=== PATIENT | male | born 1955 | race Caucasian/White ===

== ENCOUNTER 2023-09-04 12:51 | Outpatient (REF) | payer MEDICARE, OTHER, SELFPAY ==
[2023-09-04 20:30] LABS: HCT 46.9 % (40.0-50.0); HGB 16.4 g/dL (13.5-17.5); MCH 30.9 pg (27.0-33.0); MCV 89 fL (80-95); MPV 10.5 fL (8.0-11.0); Platelet Count 243 10^3/uL (130-400); RDW 11.9 % (11.8-14.1); RDW-SD 38.1 fL
[2023-09-04 20:55] LABS: ALT 28 U/L (16-63); AST 26 U/L (15-37); Albumin 4.1 g/dL (3.4-5.0); Alkaline Phosphatase 66 U/L (46-116); Anion Gap 9.5 mmol/L (3-11); BUN 18 mg/dL (7-18); Bilirubin, Total 0.4 mg/dL (0.2-1.0); CO2 26.5 mmol/L (21.0-32.0); CREATININE 1.3 mg/dL (0.70-1.30); Calcium 9.1 mg/dL (8.5-10.1); Chloride 104 mmol/L (98-107); Estimated GFR 59.47 (mL/min/1.73m2); Glucose 119 mg/dL (74-106); Potassium 4.4 mmol/L (3.5-5.1); Sodium 140 mmol/L (136-145); Total Protein 7.1 g/dL (6.4-8.2)
== END 2023-09-04 12:52 | disposition home or self-care (01) ==
LOC: LBN 12:51
PROVIDERS: Visit Provider Nurse Practitioner Family
DX: R19.7 Diarrhea, unspecified (principal); R35.0 Frequency of micturition
CPT/HCPCS: 80053; 85027

== ENCOUNTER 2023-10-15 05:14 | Outpatient (CLI) | payer MEDICARE, OTHER, SELFPAY ==
[2023-10-15 13:12] LABS: Calculated LDL 87 mg/dL (<100); Cholesterol 140 mg/dL (<200); HDL Cholesterol 40 mg/dL (40-60); Triglyceride 66 mg/dL (<150)
[2023-10-15 13:18] LABS: Hemoglobin A1C 5.7 % (<5.7)
[2023-10-15 18:04] LABS: PSA, Screening 1.4 ng/mL (<=4.5)
== END 2023-10-15 05:15 | disposition home or self-care (01) ==
LOC: LOS 05:15
PROVIDERS: Nurse Practitioner Family; PCP Nurse Practitioner Family; Visit Provider Nurse Practitioner Family
DX: Z13.1 Encounter for screening for diabetes mellitus (principal); Z13.6 Encounter for screening for cardiovascular disorders; R19.7 Diarrhea, unspecified; R35.0 Frequency of micturition
CPT/HCPCS: 36415; 80061; 84153; 83036; 83735

== ENCOUNTER → 2023-12-06 14:52 | Outpatient (BNVA) | payer MEDICARE, OTHER, SELFPAY | PROVIDERS: PCP Nurse Practitioner Family; Referring Provider Nurse Practitioner Family; Visit Provider Physical Therapy Assistant | DX: Z12.11 Encounter for screening for malignant neoplasm of colon (principal) ==

== ENCOUNTER 2024-03-21 09:11 | Outpatient (CLI) | payer MEDICARE, OTHER, SELFPAY ==
[2024-03-21 12:26] LABS: HCT 45.6 % (40.0-50.0); HGB 15.9 g/dL (13.5-17.5); MCH 30.6 pg (27.0-33.0); MCHC 34.9 % (32.0-36.0); MCV 88 fL (80-95); MPV 10.6 fL (8.0-11.0); Platelet Count 250 10^3/uL (130-400); RBC 5.19 10^6/uL (4.36-5.78); RDW 12.4 % (11.8-14.1); RDW-SD 39.7 fL
[2024-03-21 12:39] LABS: ALT 26 U/L (16-63); AST 23 U/L (15-37); Albumin 4.1 g/dL (3.4-5.0); Alkaline Phosphatase 70 U/L (46-116); Anion Gap 6.7 mmol/L (3-11); BUN 19 mg/dL (7-18); Bilirubin, Total 0.84 mg/dL (0.2-1.0); CO2 28.3 mmol/L (21.0-32.0); CREATININE 1.3 mg/dL (0.70-1.30); Calcium 9.6 mg/dL (8.5-10.1); Chloride 107 mmol/L (98-107); Estimated GFR 59.47 (mL/min/1.73m2); Glucose 116 mg/dL (74-106); Potassium 4.3 mmol/L (3.5-5.1); Sodium 142 mmol/L (136-145); Total Protein 7.6 g/dL (6.4-8.2)
[2024-03-21 18:12] LABS: PSA, Screening 1.3 ng/mL (<=4.5)
== END 2024-03-21 09:12 | disposition home or self-care (01) ==
LOC: LOS 09:12
PROVIDERS: PCP Nurse Practitioner Family; Referring Provider Nurse Practitioner Family; Visit Provider Nurse Practitioner Family
DX: R42 Dizziness and giddiness (principal); Z12.5 Encounter for screening for malignant neoplasm of prostate; R39.9 Unspecified symptoms and signs involving the genitourinary system
CPT/HCPCS: 36415; 80053; 84153; 85027